=== PATIENT | female | born 1950 | race Caucasian/White ===

== ENCOUNTER 2017-02-07 17:26 | Emergency (ER) | payer SELFPAY ==
--- NOTE | 2017-02-07 17:52 | EDM.PDOC ---
ED HPI GENERAL MEDICAL PROBLEM - General Chief Complaint: ENT Problem Stated Complaint: PT HAS SINUS INFECTION Time Seen by Provider: 02/07/17 17:37 Source of Information: Reports: Patient History Limitations: Reports: No Limitations - History of Present Illness INITIAL COMMENTS - FREE TEXT/NARRATIVE: History of present illness: []Patient has long history of sinus infections that cause facial swelling and severe pain and she was in her 20s. Patient has been feeling poorly past few days and yesterday left maxillary sinus area became swollen and tender. She used Aliya pot and took Tylenol which sometimes can alleviate her symptoms however this time her symptoms progressed. She also has right ear pain. She denies any fevers, nausea, vomiting or any other complaints. Patient is a smoker. Review of systems: As per history of present illness and below otherwise all systems reviewed and negative. Past medical history: As per history of present illness and as reviewed below otherwise noncontributory. Surgical history: As per history of present illness and as reviewed below otherwise noncontributory. Social history: No reported history of drug or alcohol abuse. Family history: As per history of present illness and as reviewed below otherwise noncontributory. Physical exam: General: Well developed, well nourished in NAD HEENT: Atraumatic, left cheek with obvious swelling and no erythem, tenderness to light pressure, pupils reactive, negative for conjunctival pallor or scleral icterus, mucous membranes moist, throat clear, neck supple, nontender, trachea midline. Patient's tongue has a 3-4 mm irregular nodule midline that is not tender. Lungs: Clear to auscultation, breath sounds equal bilaterally, chest nontender. Heart: S1S2, regular, negative for clicks, rubs, or JVD. Abdomen: Soft, nondistended, nontender. Negative for masses or hepatosplenomegaly. Negative for costovertebral tenderness. Pelvis: Stable nontender. Genitourinary: Deferred. Rectal: Deferred. Extremities: Atraumatic, negative for cords or calf pain. Neurovascular unremarkable. Neuro: Awake, alert, oriented. Cranial nerves II through XII unremarkable. Cerebellum unremarkable. Motor and sensory unremarkable throughout. Exam nonfocal. Diagnostics: [] Therapeutics: []Levaquin Impression: []Acute left maxillary sinusitis, irregular tongue lesion Plan: []Follow-up ENT for further evaluation, Levaquin as directed for sinusitis symptoms worsen or change Definitive disposition and diagnosis as appropriate pending reevaluation and review of above. Left sinus area Pain Score (Numeric/FACES): 5 - Related Data Allergies Allergy/AdvReac Type Severity Reaction Status Date / Time No Known Allergies Allergy Verified 02/07/17 17:43 Home Meds: Home Meds Lisinopril/Hydrochlorothiazide [Lisinopril-Hctz 10-12.5 mg Tab] 1 tab PO DAILY 12/20/14 [History] Simvastatin [Zocor] 1 tab PO DAILY 12/20/14 [History] Citalopram [Celexa] 20 mg PO DAILY 06/05/16 [History] Levofloxacin [Levaquin] 500 mg PO Q24H #14 tablet 02/07/17 [Rx] Past Medical History HEENT History: Reports: Impaired Vision, Sinusitis, Other (See Below) Other HEENT History: Chronic sinus infections Cardiovascular History: Reports: High Cholesterol, Hypertension Respiratory History: Reports: None Gastrointestinal History: Reports: None Genitourinary History: Reports: None 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 Musculoskeletal History: Reports: None Neurological History: Reports: None Psychiatric History: Reports: Anxiety, Depression Endocrine/Metabolic History: Reports: None Hematologic History: Reports: None Immunologic History: Reports: None Oncologic (Cancer) History: Reports: None Dermatologic History: Reports: None - Infectious Disease History Infectious Disease History: Reports: None - Past Surgical History Head Surgeries/Procedures: Reports: None HEENT Surgical History: Reports: None Cardiovascular Surgical History: Reports: None Respiratory Surgical History: Reports: None GI Surgical History: Reports: None Female Surgical History: Reports: None Musculoskeletal Surgical History: Reports: Other (See Below) Other Musculoskeletal Surgeries/Procedures:: Cervical fusion Dermatological Surgical History: Reports: None Social & Family History - Family History Family Medical History: Noncontributory - Tobacco Use Smoking Status *Q: Never Smoker Years of Tobacco use: 40 Packs/Tins Daily: 1 Used Tobacco, but Quit: No Second Hand Smoke Exposure: No - Caffeine Use Caffeine Use: Reports: None - Alcohol Use Days Per Week of Alcohol Use: 0 - Recreational Drug Use Recreational Drug Use: No ED ROS ENT - Review of Systems Review Of Systems: See Below (see HPI) ED EXAM, ENT - Physical Exam Exam: See Below (See HPI) Exam Limited By: No Limitations Course - Vital Signs Last Recorded V/S: Last Vital Signs Temp 37.1 C 02/07/17 17:37 Pulse 78 02/07/17 17:37 Resp 16 02/07/17 17:37 BP 143/67 H 02/07/17 17:37 Pulse Ox 98 02/07/17 17:37 Departure - Departure Time of Disposition: 17:53 Disposition: Home, Self-Care 01 Condition: good Clinical Impression: Acute sinusitis Qualifiers: Sinusitis location: maxillary Recurrence: recurrent Qualified Code(s): J01.01 - Acute recurrent maxillary sinusitis - Discharge Information Prescriptions: Levofloxacin [Levaquin] 500 mg PO Q24H #14 tablet Referrals: PCP,None [Primary Care Provider] - Forms: ED Department Discharge Additional Instructions: The following information is given to patients seen in the emergency department who are being discharged to home. This information is to outline your options for follow-up care. We provide all patients seen in our emergency department with a follow-up referral. The need for follow-up, as well as the timing and circumstances, are variable depending upon the specifics of your emergency department visit. If you don't have a primary care physician on staff, we will provide you with a referral. We always advise you to contact your personal physician following an emergency department visit to inform them of the circumstance of the visit and for follow-up with them and/or the need for any referrals to a consulting specialist. The emergency department will also refer you to a specialist when appropriate. This referral assures that you have the opportunity for follow-up care with a specialist. All of these measure are taken in an effort to provide you with optimal care, which includes your follow-up. Under all circumstances we always encourage you to contact your private physician who remains a resource for coordinating your care. When calling for follow-up care, please make the office aware that this follow-up is from your recent emergency room visit. If for any reason you are refused follow-up, please contact the [facility] Emergency Department at and asked to speak to the emergency department charge nurse. Take Levaquin daily until gone, increase fluids Tylenol or Motrin for pain. Follow-up with ENT [facility] [address] [place] [id number]
[2017-02-07 19:03] VITALS: BP 135/65
== END 2017-02-07 18:30 | disposition home or self-care (01) ==
LOC: MW.ED 17:26
DX: J01.01 Acute recurrent maxillary sinusitis (principal); I10 Essential (primary) hypertension; E78.00 Pure hypercholesterolemia, unspecified; F41.9 Anxiety disorder, unspecified; F32.9 Major depressive disorder, single episode, unspecified; Z79.899 Other long term (current) drug therapy
CPT/HCPCS: 99282; 99283

== ENCOUNTER 2017-09-21 16:12 | Emergency (ER) | payer SELFPAY ==
--- NOTE | 2017-09-21 16:28 | EDM.PDOC ---
ED HPI GENERAL MEDICAL PROBLEM - General Chief Complaint: Genitourinary Problem Stated Complaint: BLADDER INFECTION Time Seen by Provider: 09/21/17 16:16 - History of Present Illness INITIAL COMMENTS - FREE TEXT/NARRATIVE: HISTORY AND PHYSICAL: History of present illness: Patient 67-year-old white female presents with a concern of dysuria blood in her urine. 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 She denies fever chills nausea vomiting or back pain Review of systems: As per history of present illness and below otherwise all systems reviewed and negative. Past medical history: As per history of present illness and as reviewed below otherwise noncontributory. Surgical history: As per history of present illness and as reviewed below otherwise noncontributory. Social history: No reported history of drug or alcohol abuse. Family history: As per history of present illness and as reviewed below otherwise noncontributory. Physical exam: HEENT: Atraumatic, normocephalic, pupils reactive, negative for conjunctival pallor or scleral icterus, mucous membranes moist, throat clear, neck supple, nontender, trachea midline. Lungs: Clear to auscultation, breath sounds equal bilaterally, chest nontender. Heart: S1S2, regular, negative for clicks, rubs, or JVD. Abdomen: Soft, nondistended, nontender. Negative for masses or hepatosplenomegaly. Negative for costovertebral tenderness. Pelvis: Stable nontender. Genitourinary: Deferred. Rectal: Deferred. Extremities: Atraumatic, negative for cords or calf pain. Neurovascular unremarkable. Neuro: Awake, alert, oriented. Cranial nerves II through XII unremarkable. Cerebellum unremarkable. Motor and sensory unremarkable throughout. Exam nonfocal. Diagnostics: UA urine culture and sensitivity Therapeutics: None Impression: #1 dysuria/hematuria Definitive disposition and diagnosis as appropriate pending reevaluation and review of above. - Related Data Allergies Allergy/AdvReac Type Severity Reaction Status Date / Time No Known Allergies Allergy Verified 09/21/17 16:24 Home Meds: Home Meds Lisinopril/Hydrochlorothiazide [Lisinopril-Hctz 10-12.5 mg Tab] 1 tab PO DAILY 12/20/14 [History] Simvastatin [Zocor] 1 tab PO DAILY 12/20/14 [History] Citalopram [Celexa] 20 mg PO DAILY 06/05/16 [History] Levofloxacin [Levaquin] 500 mg PO Q24H #14 tablet 02/07/17 [Rx] Past Medical History HEENT History: Reports: Impaired Vision, Sinusitis, Other (See Below) Other HEENT History: Chronic sinus infections Cardiovascular History: Reports: High Cholesterol, Hypertension Respiratory History: Reports: None Gastrointestinal History: Reports: None Genitourinary History: Reports: None 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 Musculoskeletal History: Reports: None Neurological History: Reports: None Psychiatric History: Reports: Anxiety, Depression Endocrine/Metabolic History: Reports: None Hematologic History: Reports: None Immunologic History: Reports: None Oncologic (Cancer) History: Reports: None Dermatologic History: Reports: None - Infectious Disease History Infectious Disease History: Reports: None - Past Surgical History Head Surgeries/Procedures: Reports: None HEENT Surgical History: Reports: None Cardiovascular Surgical History: Reports: None Respiratory Surgical History: Reports: None GI Surgical History: Reports: None Female Surgical History: Reports: None Musculoskeletal Surgical History: Reports: Other (See Below) Other Musculoskeletal Surgeries/Procedures:: Cervical fusion Dermatological Surgical History: Reports: None Social & Family History - Family History Family Medical History: Noncontributory - Tobacco Use Smoking Status *Q: Never Smoker Years of Tobacco use: 40 Packs/Tins Daily: 1 Used Tobacco, but Quit: No Second Hand Smoke Exposure: No - Caffeine Use Caffeine Use: Reports: None - Alcohol Use Days Per Week of Alcohol Use: 0 - Recreational Drug Use Recreational Drug Use: No ED ROS GENERAL - Review of Systems Review Of Systems: ROS reveals no pertinent complaints other than HPI. ED EXAM, GENERAL - Physical Exam Exam: See Below (See dictation) Course - Orders/Labs/Meds Orders: Active Orders 24 hr Category Date Time Status CULTURE URINE [RM] Stat Lab 09/21/17 16:15 Uncollected UA W/MICROSCOPIC [URIN] Stat Lab 09/21/17 16:15 Uncollected Departure - Departure Time of Disposition: 16:27 Disposition: Home, Self-Care 01 Condition: Good Clinical Impression: UTI, Urinary tract infectious disease - Discharge Information Additional Instructions: The following information is given to patients seen in the emergency department who are being discharged to home. This information is to outline your options for follow-up care. We provide all patients seen in our emergency department with a follow-up referral. The need for follow-up, as well as the timing and circumstances, are variable depending upon the specifics of your emergency department visit. If you don't have a primary care physician on staff, we will provide you with a referral. We always advise you to contact your personal physician following an emergency department visit to inform them of the circumstance of the visit and for follow-up with them and/or the need for any referrals to a consulting specialist. The emergency department will also refer you to a specialist when appropriate. This referral assures that you have the opportunity for followup care with a specialist. All of these measure are taken in an effort to provide you with optimal care, which includes your followup. Under all circumstances we always encourage you to contact your private physician who remains a resource for coordinating your care. When calling for followup care, please make the office aware that this follow-up is from your recent emergency room visit. If for any reason you are refused follow-up, please contact the [facility] emergency department at and asked to speak to the emergency department charge nurse. [facility] - Urology [address] [place] [id number] [facility] - Women's Health [address] [place] [id number] Follow-up primary medical doctor call to schedule appointment with women's health and urology as discussed Keflex as prescribed Pyridium as prescribed return as needed as discussed - My Orders Last 24 Hours: My Active Orders 09/21/17 16:15 CULTURE URINE [RM] Stat UA W/MICROSCOPIC [URIN] Stat - Assessment/Plan Last 24 Hours: My Active Orders 09/21/17 16:15 CULTURE URINE [RM] Stat UA W/MICROSCOPIC [URIN] Stat
[2017-09-21 17:51] VITALS: BP 142/71
== END 2017-09-21 17:24 | disposition home or self-care (01) ==
LOC: MW.ED 16:12
DX: N39.0 Urinary tract infection, site not specified (principal); R31.9 Hematuria, unspecified; I10 Essential (primary) hypertension; E78.00 Pure hypercholesterolemia, unspecified; F32.9 Major depressive disorder, single episode, unspecified; Z79.899 Other long term (current) drug therapy
CPT/HCPCS: 81001; 87086; 99283

== ENCOUNTER 2017-12-02 10:42 | Emergency (ER) | payer SELFPAY ==
[2017-12-02 10:50] VITALS: BP 132/62
--- NOTE | 2017-12-02 11:10 | EDM.PDOC ---
ED HPI GENERAL MEDICAL PROBLEM - General Chief Complaint: Lower Extremity Injury/Pain Stated Complaint: RIGHT FOOT PAIN Time Seen by Provider: 12/02/17 11:00 Source of Information: Reports: Patient History Limitations: Reports: No Limitations - History of Present Illness INITIAL COMMENTS - FREE TEXT/NARRATIVE: HISTORY AND PHYSICAL: History of present illness: [Pt comes to the emergency room complaining of right foot pain. She first noticed 2 nights ago when she walked across her apartment complex to a friend's apartment. When she got home she noticed some pain in the arch of her right foot. Since then, her foot pain has gradually gotten worse and spread to the top of her foot. She has noticed redness and swelling as well. Pain with flexing her right foot. She has not taken any medications for her symptoms. 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 She called in sick today due to the pain in her foot. She's not noticed any fever chills. No abdominal pain, nausea or vomiting. No left foot pain. Denies pain in her knee and in her calf.] Review of systems: As per history of present illness and below otherwise all systems reviewed and negative. Past medical history: As per history of present illness and as reviewed below otherwise noncontributory. Surgical history: As per history of present illness and as reviewed below otherwise noncontributory. Social history: No reported history of drug or alcohol abuse. Family history: As per history of present illness and as reviewed below otherwise noncontributory. Physical exam: General: Well developed, well nourished female in no acute distress. HEENT: Atraumatic, normocephalic., Oral mucous members are pink and moist. Lungs: Clear to auscultation, breath sounds equal bilaterally. Heart: S1S2, regular, negative for clicks, rubs, or JVD. Pelvis: Stable nontender. Genitourinary: Deferred. Rectal: Deferred. Extremities: R foot is swollen, with erythema across the dorsum of her right foot, approximately half inch wide. She is exquisitely tender over the arch of her foot as well as over the areas of erythema. No streaking up her leg or foot. Cap refill less than 2 seconds. No calf pain with palpation. Tender with weight bearing, flexing and extending her foot, but no calf pain with these motions. Neurovascular unremarkable. Neuro: Awake, alert, oriented. Motor and sensory unremarkable throughout. Exam nonfocal. Diagnostics: [Right foot and ankle x-ray, CBC, sedimentation rate, CRP, lactate, uric acid] Impression: [R foot pain] Plan: [Will treat as a cellulitis at this time with cephalexin 500mg qid x 10 days. Rx sent to [facility]. OTC analgesics prn. Is given a note to excuse from work until 12/05/17, but she must F/u w/ PCP prior to returning to work. She is in agreement with today's plan. Strict return precautions are reviewed. All questions are answered and concerns are addressed.] Definitive disposition and diagnosis as appropriate pending reevaluation and review of above. - Related Data Allergies Allergy/AdvReac Type Severity Reaction Status Date / Time No Known Allergies Allergy Verified 12/02/17 10:48 Home Meds: Home Meds Lisinopril/Hydrochlorothiazide [Lisinopril-Hctz 10-12.5 mg Tab] 1 tab PO DAILY 12/20/14 [History] Simvastatin [Zocor] 1 tab PO DAILY 12/20/14 [History] Citalopram [Celexa] 20 mg PO DAILY 06/05/16 [History] ALPRAZolam [Xanax] 0.25 mg PO DAILY 09/21/17 [History] Past Medical History HEENT History: Reports: Impaired Vision, Sinusitis, Other (See Below) Other HEENT History: Chronic sinus infections Cardiovascular History: Reports: High Cholesterol, Hypertension Respiratory History: Reports: None Gastrointestinal History: Reports: None Genitourinary History: Reports: Other (See Below) 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 Musculoskeletal History: Reports: None Neurological History: Reports: None Psychiatric History: Reports: Anxiety, Depression Endocrine/Metabolic History: Reports: None Hematologic History: Reports: None Immunologic History: Reports: None Oncologic (Cancer) History: Reports: None Dermatologic History: Reports: None - Infectious Disease History Infectious Disease History: Reports: Chicken Pox - Past Surgical History Head Surgeries/Procedures: Reports: None HEENT Surgical History: Reports: None Cardiovascular Surgical History: Reports: None Respiratory Surgical History: Reports: None GI Surgical History: Reports: None Female Surgical History: Reports: Other (See Below) Other Female Surgeries/Procedures: prolopased uterus Musculoskeletal Surgical History: Reports: Other (See Below) Other Musculoskeletal Surgeries/Procedures:: Cervical fusion Dermatological Surgical History: Reports: None Social & Family History - Family History Family Medical History: Noncontributory - Tobacco Use Smoking Status *Q: Current Every Day Smoker Years of Tobacco use: 50 Packs/Tins Daily: 1 Used Tobacco, but Quit: No Second Hand Smoke Exposure: No - Caffeine Use Caffeine Use: Reports: Soda, Tea - Alcohol Use Days Per Week of Alcohol Use: 0 - Recreational Drug Use Recreational Drug Use: No Review of Systems - Review of Systems Review Of Systems: ROS reveals no pertinent complaints other than HPI. ED EXAM, GENERAL - Physical Exam Exam: See Below Course - Vital Signs Last Recorded V/S: Last Vital Signs Temp 96.2 F 12/02/17 10:49 Pulse 91 12/02/17 10:49 Resp 16 12/02/17 10:49 BP 132/62 12/02/17 10:49 Pulse Ox 97 12/02/17 10:49 - Orders/Labs/Meds Orders: Active Orders 24 hr Category Date Time Status Foot 2V Rt [CR] Stat Exams 12/02/17 11:07 Taken Labs: Laboratory Tests 12/02/17 12/02/17 12/02/17 Range/Units 11:20 11:20 11:20 WBC 9.43 (4.0-11.0) K/uL RBC 4.87 (4.30-5.90) M/uL Hgb 16.3 H (12.0-16.0) g/dL Hct 46.7 H (36.0-46.0) % MCV 95.9 (80.0-98.0) fL MCH 33.5 H (27.0-32.0) pg MCHC 34.9 (31.0-37.0) g/dL RDW Std Deviation 47.0 (28.0-62.0) fl RDW Coeff of Aide 13 (11.0-15.0) % Plt Count 253 (150-400) K/uL MPV 10.60 (7.40-12.00) fL Neut % (Auto) 64.8 (48.0-80.0) % Lymph % (Auto) 24.4 (16.0-40.0) % Ocean % (Auto) 10.3 (0.0-15.0) % Eos % (Auto) 0.4 (0.0-7.0) % Baso % (Auto) 0.1 (0.0-1.5) % Neut # (Auto) 6.1 H (1.4-5.7) K/uL Lymph # (Auto) 2.3 (0.6-2.4) K/uL Ocean # (Auto) 1.0 H (0.0-0.8) K/uL Eos # (Auto) 0.0 (0.0-0.7) K/uL Baso # (Auto) 0.0 (0.0-0.1) K/uL Nucleated RBC % 0.0 /100WBC Nucleated RBCs # 0 K/uL ESR 32 H (0-29) mm/hr Lactate 3.0 H (0.20-2.00) mmol/L Uric Acid (2.6-7.2) mg/dL C-Reactive Protein (0.00-0.90) mg/dL 12/02/17 12/02/17 Range/Units 11:20 11:20 WBC (4.0-11.0) K/uL RBC (4.30-5.90) M/uL Hgb (12.0-16.0) g/dL Hct (36.0-46.0) % MCV (80.0-98.0) fL MCH (27.0-32.0) pg MCHC (31.0-37.0) g/dL RDW Std Deviation (28.0-62.0) fl RDW Coeff of Aide (11.0-15.0) % Plt Count (150-400) K/uL MPV (7.40-12.00) fL Neut % (Auto) (48.0-80.0) % Lymph % (Auto) (16.0-40.0) % Ocean % (Auto) (0.0-15.0) % Eos % (Auto) (0.0-7.0) % Baso % (Auto) (0.0-1.5) % Neut # (Auto) (1.4-5.7) K/uL Lymph # (Auto) (0.6-2.4) K/uL Ocean # (Auto) (0.0-0.8) K/uL Eos # (Auto) (0.0-0.7) K/uL Baso # (Auto) (0.0-0.1) K/uL Nucleated RBC % /100WBC Nucleated RBCs # K/uL ESR (0-29) mm/hr Lactate (0.20-2.00) mmol/L Uric Acid 3.4 (2.6-7.2) mg/dL C-Reactive Protein 3.30 H (0.00-0.90) mg/dL Departure - Departure Time of Disposition: 12:35 Disposition: Home, Self-Care 01 Condition: Good Clinical Impression: Right foot pain - Discharge Information Instructions: Foot Pain Referrals: Nathaniel Gleason MD [Primary Care Provider] - Forms: ED Department Discharge Additional Instructions: The following information is given to patients seen in the emergency department who are being discharged to home. This information is to outline your options for follow-up care. We provide all patients seen in our emergency department with a follow-up referral. The need for follow-up, as well as the timing and circumstances, are variable depending upon the specifics of your emergency department visit. If you don't have a primary care physician on staff, we will provide you with a referral. We always advise you to contact your personal physician following an emergency department visit to inform them of the circumstance of the visit and for follow-up with them and/or the need for any referrals to a consulting specialist. The emergency department will also refer you to a specialist when appropriate. This referral assures that you have the opportunity for follow-up care with a specialist. All of these measure are taken in an effort to provide you with optimal care, which includes your follow-up. Under all circumstances we always encourage you to contact your private physician who remains a resource for coordinating your care. When calling for follow-up care, please make the office aware that this follow-up is from your recent emergency room visit. If for any reason you are refused follow-up, please contact the [facility] emergency department at and asked to speak to the emergency department charge nurse. [address] [address] Follow-up with your local primary care provider at the clinic listed above in the next 48-72 hours. Take antibiotics as prescribed. Push fluids, take Tylenol or ibuprofen as needed for discomfort. Keep foot elevated. Return to ER as needed as discussed. - My Orders Last 24 Hours: My Active Orders 12/02/17 11:07 Foot 2V Rt [CR] Stat - Assessment/Plan Last 24 Hours: My Active Orders 12/02/17 11:07 Foot 2V Rt [CR] Stat
--- NOTE | 2017-12-03 13:25 | CR ---
EXAM DATE: 12/02/17 PATIENT'S AGE: 67 Patient: WILLIAM TAYLOR Facility: [place], [place] Site . Site : 1950 Study: XRay Extremity Right foot [id number]/1/2018 11:47:25 AM Ordering Physician: Doctor Cabrera Final Report: INDICATION: Pain, redness and swelling right foot. COMPARISON: None. TECHNIQUE: Two-view study right foot. FINDINGS: Soft tissue swelling overlying the dorsum of the right foot. No evidence of fracture or dislocation. No other bony or soft tissue abnormalities. IMPRESSION: 1. Soft tissue swelling overlying the dorsum of the right foot. 2. No fracture or dislocation. Dictated by Elie Schneider MD @ Dec 02 2017 11:48AM (Electronic Signature) Report Signed by Proxy. LAYO
== END 2017-12-02 12:46 | disposition home or self-care (01) ==
LOC: MW.ED 10:42
DX: M79.671 Pain in right foot (principal); I10 Essential (primary) hypertension; F41.9 Anxiety disorder, unspecified; F32.9 Major depressive disorder, single episode, unspecified; Z79.899 Other long term (current) drug therapy; E78.00 Pure hypercholesterolemia, unspecified; F17.210 Nicotine dependence, cigarettes, uncomplicated
CPT/HCPCS: 36415; 73620-26-RT; 73620-RT; 83605; 84550; 85025; 85652; 86140; 99283

== ENCOUNTER 2018-01-02 18:18 | Emergency (ER) | payer SELFPAY ==
[2018-01-02] MEDS ORDERED: Acetaminophen/Codeine 300-30 MG Tab PO ONE (18:33)
--- NOTE | 2018-01-02 18:36 | EDM.PDOC ---
ED HPI GENERAL MEDICAL PROBLEM - General Chief Complaint: Neck Problem Stated Complaint: PT HAS BODY PAIN Time Seen by Provider: 01/02/18 18:25 - History of Present Illness INITIAL COMMENTS - FREE TEXT/NARRATIVE: HISTORY AND PHYSICAL: History of present illness: Patient's a 67-year-old female with history chronic intermittent neck pain she did have cervical spine fusion for multiple disc disease and is on Flexeril which she takes when necessary she's had no trauma she states the weather sometimes exacerbates pain in the neck and she comes in with neck pain is been no numbness or weakness she has been using Motrin also and is in no significant improvement Review of systems: As per history of present illness and below otherwise all systems reviewed and negative. Past medical history: As per history of present illness and as reviewed below otherwise noncontributory. Surgical history: As per history of present illness and as reviewed below otherwise noncontributory. Social history: No reported history of drug or alcohol abuse. Family history: As per history of present illness and as reviewed below otherwise noncontributory. Physical exam: HEENT: Atraumatic, normocephalic, pupils reactive, negative for conjunctival pallor or scleral icterus, mucous membranes moist, throat clear, neck supple, nontender, trachea midline. Lungs: Clear to auscultation, breath sounds equal bilaterally, chest nontender. Heart: S1S2, regular, negative for clicks, rubs, or JVD. Abdomen: Soft, nondistended, nontender. Negative for masses or hepatosplenomegaly. Negative for costovertebral tenderness. Pelvis: Stable nontender. Genitourinary: Deferred. Rectal: Deferred. Extremities: Atraumatic, negative for cords or calf pain. Neurovascular unremarkable. Neuro: Awake, alert, oriented. Cranial nerves II through XII unremarkable. Cerebellum unremarkable. Motor and sensory unremarkable throughout. Exam nonfocal. Diagnostics: X-ray cervical spine Therapeutics: Tylenol 3 one by mouth Impression: #1 chronic intermittent neck pain #2 history of cervical disc disease with spinal fusion Definitive disposition and diagnosis as appropriate pending reevaluation and review of above. Neck Pain Score (Numeric/FACES): 7 - Related Data Allergies Allergy/AdvReac Type Severity Reaction Status Date / Time No Known Allergies Allergy Verified 01/02/18 18:32 Home Meds: Home Meds Lisinopril/Hydrochlorothiazide [Lisinopril-Hctz 10-12.5 mg Tab] 1 tab PO DAILY 12/20/14 [History] Simvastatin [Zocor] 1 tab PO DAILY 12/20/14 [History] Citalopram [Celexa] 20 mg PO DAILY 06/05/16 [History] ALPRAZolam [Xanax] 0.25 mg PO DAILY 09/21/17 [History] Past Medical History HEENT History: Reports: Impaired Vision, Sinusitis, Other (See Below) Other HEENT History: Chronic sinus infections Cardiovascular History: Reports: High Cholesterol, Hypertension Respiratory History: Reports: None Gastrointestinal History: Reports: None Genitourinary History: Reports: Other (See Below) 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 Musculoskeletal History: Reports: None Neurological History: Reports: None Psychiatric History: Reports: Anxiety, Depression Endocrine/Metabolic History: Reports: None Hematologic History: Reports: None Immunologic History: Reports: None Oncologic (Cancer) History: Reports: None Dermatologic History: Reports: None - Infectious Disease History Infectious Disease History: Reports: Chicken Pox - Past Surgical History Head Surgeries/Procedures: Reports: None HEENT Surgical History: Reports: None Cardiovascular Surgical History: Reports: None Respiratory Surgical History: Reports: None GI Surgical History: Reports: None Female Surgical History: Reports: Other (See Below) Other Female Surgeries/Procedures: prolopased uterus Musculoskeletal Surgical History: Reports: Other (See Below) Other Musculoskeletal Surgeries/Procedures:: Cervical fusion Dermatological Surgical History: Reports: None Social & Family History - Family History Family Medical History: Noncontributory - Tobacco Use Smoking Status *Q: Current Every Day Smoker Years of Tobacco use: 50 Packs/Tins Daily: 1 Used Tobacco, but Quit: No Second Hand Smoke Exposure: No - Caffeine Use Caffeine Use: Reports: Soda, Tea - Alcohol Use Days Per Week of Alcohol Use: 0 - Recreational Drug Use Recreational Drug Use: No ED ROS GENERAL - Review of Systems Review Of Systems: ROS reveals no pertinent complaints other than HPI. ED EXAM, GENERAL - Physical Exam Exam: See Below (See dictation) Course - Vital Signs Last Recorded V/S: Last Vital Signs Temp 37.1 C 01/02/18 18:28 Pulse 91 01/02/18 18:28 Resp 18 01/02/18 18:28 BP 130/72 01/02/18 18:28 Pulse Ox 93 L 01/02/18 18:28 - Orders/Labs/Meds Orders: Active Orders 24 hr Category Date Time Status Cervical Spine 2V or 3V [CR] Stat Exams 01/02/18 18:32 Taken Meds: Medications Discontinued Medications Generic Name Dose Route Start Last Admin Trade Name Aleena PRN Reason Stop Dose Admin Acetaminophen/Codeine Phosphate 1 tab 01/02/18 18:33 01/02/18 19:15 Tylenol With Codeine No.3 300mg/30mg PO 01/02/18 18:34 1 tab ONETIME ONE Administration Departure - Departure Time of Disposition: 20:11 Disposition: Home, Self-Care 01 Condition: Good Clinical Impression: Neck pain, Degenerative disc disease - Discharge Information Referrals: PCP,None [Primary Care Provider] - Forms: ED Department Discharge Additional Instructions: The following information is given to patients seen in the emergency department who are being discharged to home. This information is to outline your options for follow-up care. We provide all patients seen in our emergency department with a follow-up referral. The need for follow-up, as well as the timing and circumstances, are variable depending upon the specifics of your emergency department visit. If you don't have a primary care physician on staff, we will provide you with a referral. We always advise you to contact your personal physician following an emergency department visit to inform them of the circumstance of the visit and for follow-up with them and/or the need for any referrals to a consulting specialist. The emergency department will also refer you to a specialist when appropriate. This referral assures that you have the opportunity for followup care with a specialist. All of these measure are taken in an effort to provide you with optimal care, which includes your followup. Under all circumstances we always encourage you to contact your private physician who remains a resource for coordinating your care. When calling for followup care, please make the office aware that this follow-up is from your recent emergency room visit. If for any reason you are refused follow-up, please contact the [facility] emergency department at and asked to speak to the emergency department charge nurse. Ultram as prescribed follow-up private medical doctor return as needed as discussed[] - My Orders Last 24 Hours: My Active Orders 01/02/18 18:32 Cervical Spine 2V or 3V [CR] Stat - Assessment/Plan Last 24 Hours: My Active Orders 01/02/18 18:32 Cervical Spine 2V or 3V [CR] Stat
[2018-01-02 20:31] VITALS: BP 110/70
--- NOTE | 2018-01-03 09:54 | CR ---
EXAM DATE: 01/02/18 PATIENT'S AGE: 67 Patient: WILLIAM TAYLOR Facility: [place], [place] Site . Site : 1950 Study: XRay Spine Cervical [id number]/2/2018 7:05:21 PM Ordering Physician: Ricky Holden Final Report: HISTORY: Neck pain. COMPARISON: None. FINDINGS: Straightening of the normal lordotic curvature of the cervical spine. C4 through C7 anterior fusion with interbody disc spacers. Hardware appears intact. No evidence for acute fracture. Prevertebral soft tissues are within normal. C1 well aligned on C2. Dictated by Kennedi Rivers MD @ Jan 02 2018 7:06PM (Electronic Signature) Report Signed by Proxy. LAYO
== END 2018-01-02 20:15 | disposition home or self-care (01) ==
LOC: MW.ED 18:18
DX: M50.30 Other cervical disc degeneration, unspecified cervical region (principal); E78.00 Pure hypercholesterolemia, unspecified; I10 Essential (primary) hypertension; F41.9 Anxiety disorder, unspecified; F32.9 Major depressive disorder, single episode, unspecified; F17.210 Nicotine dependence, cigarettes, uncomplicated; M19.91 Primary osteoarthritis, unspecified site; Z79.899 Other long term (current) drug therapy
CPT/HCPCS: 72040; 99283; A9270

== ENCOUNTER 2018-09-30 14:44 | Emergency (ER) | payer MEDICARE ==
[2018-09-30 15:20] VITALS: BP 108/63
--- NOTE | 2018-09-30 15:39 | EDM.PDOC ---
ED HPI GENERAL MEDICAL PROBLEM - General Chief Complaint: Lower Extremity Injury/Pain Stated Complaint: LEFT FOOT SWOLLEN Time Seen by Provider: 09/30/18 15:34 Source of Information: Reports: Patient History Limitations: Reports: No Limitations - History of Present Illness INITIAL COMMENTS - FREE TEXT/NARRATIVE: HISTORY AND PHYSICAL: History of present illness: Patient is a 68 year old female here with complaint of left foot pain and swelling. She states she had something similar in her right ankle last year and was diagnosed with gout by her primary care provider believes that this is what she has in her left ankle. She states not as bad this time and rates as a /10. She reports that she's been on her feet at work working 10 days in a row started bothering her after this become swollen and painful. She denies any fevers or chills and no injury or trauma to the ankle. She is otherwise healthy and has no other complaints at this time Review of systems: As per history of present illness and below otherwise all systems reviewed and negative. Past medical history: As per history of present illness and as reviewed below otherwise noncontributory. Surgical history: As per history of present illness and as reviewed below otherwise noncontributory. Social history: No reported history of drug or alcohol abuse. Family history: As per history of present illness and as reviewed below otherwise noncontributory. Physical exam: General: Patient sitting comfortably in no acute distress and nontoxic appearing HEENT: Atraumatic, normocephalic, pupils reactive, negative for conjunctival pallor or scleral icterus, mucous membranes moist, throat clear, neck supple, nontender, trachea midline. No meningeal signs. Lungs: Clear to auscultation, breath sounds equal bilaterally, chest nontender. Heart: S1S2, regular, negative for clicks, rubs, or overt murmur. Abdomen: Soft, nondistended, nontender. Negative for masses or hepatosplenomegaly. Negative for costovertebral tenderness. Pelvis: Stable nontender. Genitourinary: Deferred. Rectal: Deferred. Extremities: Left medial ankle is swollen with minimal tenderness to palpation on exam. No erythema and mild warmth noted. Atraumatic, negative for cords or calf pain. Neurovascular unremarkable. Neuro: Awake, alert, oriented. Cranial nerves II through XII unremarkable. Cerebellum unremarkable. Motor and sensory unremarkable throughout. Exam nonfocal. Notes: Diagnostics: Declined x-ray Therapeutics: None Prescriptions: Indomethacin Impression: Ankle pain, acute gout Plan: 1. Take antibiotic as instructed 2. Follow-up with primary care provider 3. Return to ED as needed as discussed Definitive disposition and diagnosis as appropriate pending reevaluation and review of above. left foot Pain Score (Numeric/FACES): 1 - Related Data Allergies Allergy/AdvReac Type Severity Reaction Status Date / Time No Known Allergies Allergy Verified 01/02/18 18:32 Home Meds: Home Meds Lisinopril/Hydrochlorothiazide [Lisinopril-Hctz 10-12.5 mg Tab] 1 tab PO DAILY 12/20/14 [History] Simvastatin [Zocor] 1 tab PO DAILY 12/20/14 [History] Citalopram [Celexa] 20 mg PO DAILY 06/05/16 [History] ALPRAZolam [Xanax] 0.25 mg PO DAILY 09/21/17 [History] Indomethacin 50 mg PO TID 5 Days #15 capsule 09/30/18 [Rx] Past Medical History HEENT History: Reports: Impaired Vision, Sinusitis, Other (See Below) Other HEENT History: Chronic sinus infections Cardiovascular History: Reports: High Cholesterol, Hypertension Respiratory History: Reports: None Gastrointestinal History: Reports: None Genitourinary History: Reports: Other (See Below) 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, Musculoskeletal History: Reports: None Neurological History: Reports: None Psychiatric History: Reports: Anxiety, Depression Endocrine/Metabolic History: Reports: None Hematologic History: Reports: None Immunologic History: Reports: None Oncologic (Cancer) History: Reports: None Dermatologic History: Reports: None - Infectious Disease History Infectious Disease History: Reports: Chicken Pox - Past Surgical History Head Surgeries/Procedures: Reports: None HEENT Surgical History: Reports: None Cardiovascular Surgical History: Reports: None Respiratory Surgical History: Reports: None GI Surgical History: Reports: Appendectomy Female Surgical History: Reports: Other (See Below) Other Female Surgeries/Procedures: prolopased uterus Musculoskeletal Surgical History: Reports: Other (See Below) Other Musculoskeletal Surgeries/Procedures:: Cervical fusion Dermatological Surgical History: Reports: None Social & Family History - Family History Family Medical History: Noncontributory - Tobacco Use Smoking Status *Q: Current Every Day Smoker Years of Tobacco use: 20 Packs/Tins Daily: 1 - Caffeine Use Caffeine Use: Reports: Soda, Tea - Recreational Drug Use Recreational Drug Use: No Review of Systems - Review of Systems Review Of Systems: ROS reveals no pertinent complaints other than HPI. ED EXAM, GENERAL - Physical Exam Exam: See Below (see dictation) Course - Vital Signs Last Recorded V/S: Last Vital Signs Temp 97.8 F 09/30/18 15:18 Pulse 72 09/30/18 15:18 Resp 16 09/30/18 15:18 BP 108/63 09/30/18 15:18 Pulse Ox 94 L 09/30/18 15:18 Departure - Departure Time of Disposition: 15:37 Disposition: Home, Self-Care 01 Condition: Good Clinical Impression: Ankle pain, Acute gout - Discharge Information Referrals: Nathaniel Gleason MD [Primary Care Provider] - Additional Instructions: The following information is given to patients seen in the emergency department who are being discharged to home. This information is to outline your options for follow-up care. We provide all patients seen in our emergency department with a follow-up referral. The need for follow-up, as well as the timing and circumstances, are variable depending upon the specifics of your emergency department visit. If you don't have a primary care physician on staff, we will provide you with a referral. We always advise you to contact your personal physician following an emergency department visit to inform them of the circumstance of the visit and for follow-up with them and/or the need for any referrals to a consulting specialist. The emergency department will also refer you to a specialist when appropriate. This referral assures that you have the opportunity for follow-up care with a specialist. All of these measure are taken in an effort to provide you with optimal care, which includes your follow-up. Under all circumstances we always encourage you to contact your private physician who remains a resource for coordinating your care. When calling for follow-up care, please make the office aware that this follow-up is from your recent emergency room visit. If for any reason you are refused follow-up, please contact the [facility] Emergency Department at and asked to speak to the emergency department charge nurse. [address] [address] 1. Take antibiotic as instructed 2. Follow-up with primary care provider 3. Return to ED as needed as discussed
== END 2018-09-30 15:52 | disposition home or self-care (01) ==
LOC: MW.ED 14:44
DX: M10.9 Gout, unspecified (principal); M25.572 Pain in left ankle and joints of left foot; I10 Essential (primary) hypertension; F41.9 Anxiety disorder, unspecified; F32.9 Major depressive disorder, single episode, unspecified; Z79.899 Other long term (current) drug therapy
CPT/HCPCS: 99282; 99283

== ENCOUNTER 2020-02-28 16:52 | Emergency (ER) | payer MEDICARE, BC ==
[2020-02-28] MEDS ORDERED: Dexamethasone 4 MG Tab PO ONE (17:17)
--- NOTE | 2020-02-28 17:23 | EDM.PDOC ---
ED HPI GENERAL MEDICAL PROBLEM - General Chief Complaint: Neck Problem Stated Complaint: Neck pain Time Seen by Provider: 02/28/20 17:09 - History of Present Illness INITIAL COMMENTS - FREE TEXT/NARRATIVE: History of present illness: Patient presents with pain and spasm in her neck that radiates down into the right upper back between her shoulder blades she denies any trauma there is been no fever movement seems to make it worse sometimes it gets better by itself she is using some salonpas patches and these are helping. Is a prior history of degenerative joint disease with a fusion in the past and discectomies. She has some tingling occasionally in her upper arms but she denies any candelario pain going down her arms at this time she has tried no other medications for the pain no shortness of breath no weakness no difficulty urinating Review of systems: As per history of present illness and below otherwise all systems reviewed and negative. Past medical history: As per history of present illness and as reviewed below otherwise noncontributory. Surgical history: As per history of present illness and as reviewed below otherwise noncontributory. Social history: No reported history of drug or alcohol abuse. Family history: As per history of present illness and as reviewed below otherwise noncontributory. Physical exam: HEENT: Atraumatic, normocephalic, pupils reactive, negative for conjunctival pallor or scleral icterus, mucous membranes moist, throat clear, neck supple, nontender, trachea midline. Lungs: Clear to auscultation, breath sounds equal bilaterally, chest nontender. Heart: S1S2, regular, negative for clicks, rubs, or JVD. Abdomen: Soft, nondistended, nontender. Negative for masses or hepatosplenomegaly. Negative for costovertebral tenderness. Pelvis: Stable nontender. Genitourinary: Deferred. Rectal: Deferred. Extremities: Atraumatic, negative for cords or calf pain. Neurovascular unremarkable. Neuro: Awake, alert, oriented. Cranial nerves II through XII unremarkable. Cerebellum unremarkable. Motor and sensory unremarkable throughout. Exam nonfocal. Upper extremity hands are full strength and sensation. Neck: There is spasm and tenderness in the paraspinal musculature at the base of the cervical spine extending down into the upper thoracic spine worse on the right there is no midline tenderness no tenderness to percussion no increased symptoms with axial load Diagnostics: [] Therapeutics: [] Impression: Neck pain [] Plan: We will start the patient on steroids and Flexeril have her follow-up with primary care Tylenol for pain [] Definitive disposition and diagnosis as appropriate pending reevaluation and review of above. Bilateral upper back Pain Score (Numeric/FACES): 6 - Related Data Allergies Allergy/AdvReac Type Severity Reaction Status Date / Time No Known Allergies Allergy Verified 02/28/20 17:08 Home Meds: Home Meds Simvastatin [Zocor] 1 tab PO DAILY 12/20/14 [History] Citalopram [Celexa] 20 mg PO DAILY 06/05/16 [History] ALPRAZolam [Xanax] 0.25 mg PO DAILY 09/21/17 [History] Cyclobenzaprine [Flexeril] 10 mg PO TID #30 tab 02/28/20 [Rx] Pseudoephedrine HCl [Sudafed] 1 tab PO ASDIRECTED 02/28/20 [History] predniSONE 60 mg PO WITHBREAKFAST 5 Days #15 tab 02/28/20 [Rx] Past Medical History HEENT History: Reports: Impaired Vision, Sinusitis, Other (See Below) Other HEENT History: Chronic sinus infections Cardiovascular History: Reports: High Cholesterol, Hypertension Respiratory History: Reports: None Gastrointestinal History: Reports: None Genitourinary History: Reports: Other (See Below) MAORI LIAISON ADVISER History: Reports: None, Musculoskeletal History: Reports: None Neurological History: Reports: None Psychiatric History: Reports: Anxiety, Depression Endocrine/Metabolic History: Reports: None Hematologic History: Reports: None Immunologic History: Reports: None Oncologic (Cancer) History: Reports: None Dermatologic History: Reports: None - Infectious Disease History Infectious Disease History: Reports: None - Past Surgical History Head Surgeries/Procedures: Reports: None HEENT Surgical History: Reports: None Cardiovascular Surgical History: Reports: None Respiratory Surgical History: Reports: None GI Surgical History: Reports: Appendectomy Female Surgical History: Reports: Other (See Below) Other Female Surgeries/Procedures: prolopased uterus Musculoskeletal Surgical History: Reports: Other (See Below) Other Musculoskeletal Surgeries/Procedures:: Cervical fusion Dermatological Surgical History: Reports: None Social & Family History - Family History Family Medical History: Noncontributory - Tobacco Use Smoking Status *Q: Current Every Day Smoker Years of Tobacco use: 50 Packs/Tins Daily: 1 - Caffeine Use Caffeine Use: Reports: Soda - Recreational Drug Use Recreational Drug Use: No ED ROS GENERAL - Review of Systems Review Of Systems: See Below ED EXAM, GENERAL - Physical Exam Exam: See Below Course - Vital Signs Text/Narrative:: Patient's pain is clearly musculoskeletal she will be started on some steroid and Flexeril for her spasm and inflammation follow-up with primary care. Last Recorded V/S: Last Vital Signs Temp 36.0 C L 02/28/20 17:09 Pulse 86 02/28/20 17:09 Resp 16 02/28/20 17:09 BP 171/86 H 02/28/20 17:09 Pulse Ox 93 L 02/28/20 17:09 - Orders/Labs/Meds Orders: Active Orders 24 hr Category Date Time Status dexAMETHasone Med 02/28/20 17:17 Once 8 mg PO ONETIME ONE Medication Orders Dexamethasone (Dexamethasone) 8 mg PO ONETIME ONE Stop: 02/28/20 17:18 Meds: Medications Generic Name Dose Route Start Last Admin Trade Name Aleena PRN Reason Stop Dose Admin Dexamethasone 8 mg 02/28/20 17:17 Dexamethasone PO 02/28/20 17:18 ONETIME ONE Departure - Departure Time of Disposition: 17:22 Disposition: 20 Condition: Good Clinical Impression: Neck pain - Discharge Information *PRESCRIPTION DRUG MONITORING PROGRAM REVIEWED*: Not Applicable *COPY OF PRESCRIPTION DRUG MONITORING REPORT IN PATIENT JAGJIT: Not Applicable Instructions: Cervical Sprain, [id number] Referrals: Nathaniel Gleason MD [Primary Care Provider] - Additional Instructions: The following information is given to patients seen in the emergency department who are being discharged to home. This information is to outline your options for follow-up care. We provide all patients seen in our emergency department with a follow-up referral. The need for follow-up, as well as the timing and circumstances, are variable depending upon the specifics of your emergency department visit. If you don't have a primary care physician on staff, we will provide you with a referral. We always advise you to contact your personal physician following an emergency department visit to inform them of the circumstance of the visit and for follow-up with them and/or the need for any referrals to a consulting specialist. The emergency department will also refer you to a specialist when appropriate. This referral assures that you have the opportunity for follow-up care with a specialist. All of these measure are taken in an effort to provide you with optimal care, which includes your follow-up. Under all circumstances we always encourage you to contact your private physician who remains a resource for coordinating your care. When calling for follow-up care, please make the office aware that this follow-up is from your recent emergency room visit. If for any reason you are refused follow-up, please contact the [facility] Emergency Department at and asked to speak to the emergency department charge nurse. Sepsis Event Note (ED) - Evaluation Sepsis Screening Result: No Definite Risk - Focused Exam Vital Signs: Vital Signs Temp Pulse Resp BP Pulse Ox 02/28/20 17:09 36.0 C L 86 16 171/86 H 93 L - My Orders Last 24 Hours: My Active Orders 02/28/20 17:17 dexAMETHasone 8 mg PO ONETIME ONE - Assessment/Plan Last 24 Hours: My Active Orders 02/28/20 17:17 dexAMETHasone 8 mg PO ONETIME ONE
[2020-02-28 17:34] VITALS: BP 156/84; PULSE 85
== END 2020-02-28 17:38 | disposition home or self-care (01) ==
LOC: MW.ED 16:52
DX: M54.2 Cervicalgia (principal); I10 Essential (primary) hypertension; E78.00 Pure hypercholesterolemia, unspecified; F41.9 Anxiety disorder, unspecified; F32.9 Major depressive disorder, single episode, unspecified; F17.210 Nicotine dependence, cigarettes, uncomplicated; Z79.899 Other long term (current) drug therapy
CPT/HCPCS: 99283; J8540

== ENCOUNTER 2020-04-24 15:31 | Emergency (ER) | payer BC, MEDICARE ==
[2020-04-24 15:47] VITALS: PULSE 85
--- NOTE | 2020-04-24 16:13 | EDM.PDOC ---
ED HPI GENERAL MEDICAL PROBLEM - General Chief Complaint: Skin Complaint Stated Complaint: PINKY FINGER IS SWOLLEN Time Seen by Provider: 04/24/20 15:39 - History of Present Illness INITIAL COMMENTS - FREE TEXT/NARRATIVE: History of present illness: Patient presents with swelling and redness to her left nondominant fifth finger. She says she woke up with the pain in the hand she denies any trauma or any insect bites but there is a small abrasion to the dorsal aspect of the proximal interphalangeal joint with surrounding erythema and calor. She is concerned it might be gout she states she is had gout in her toes before but this is an unusual presentation in the fifth digit she denies any other injuries no other complaints she denies any fever chills it is progressively gotten worse throughout the day. Review of systems: As per history of present illness and below otherwise all systems reviewed and negative. Past medical history: As per history of present illness and as reviewed below otherwise noncontributory. Surgical history: As per history of present illness and as reviewed below otherwise noncontributory. Social history: No reported history of drug or alcohol abuse. Family history: As per history of present illness and as reviewed below otherwise noncontributory. Physical exam: HEENT: Atraumatic, normocephalic, pupils reactive, negative for conjunctival pallor or scleral icterus, mucous membranes moist, throat clear, neck supple, nontender, trachea midline. Lungs: Clear to auscultation, breath sounds equal bilaterally, chest nontender. Heart: S1S2, regular, negative for clicks, rubs, or JVD. Abdomen: Soft, nondistended, nontender. Negative for masses or hepatosplenomegaly. Negative for costovertebral tenderness. Pelvis: Stable nontender. Genitourinary: Deferred. Rectal: Deferred. Extremities: Atraumatic, negative for cords or calf pain. Neurovascular unremarkable. There is redness and erythema in the skin at the proximal interphalangeal joint with tenderness. Good distal cap refill and sensation are present. This is consistent with a cellulitis is a small abrasion to the dorsal aspect just above the knuckle there. Neuro: Awake, alert, oriented. Cranial nerves II through XII unremarkable. Cerebellum unremarkable. Motor and sensory unremarkable throughout. Exam nonfocal. Diagnostics: [] Therapeutics: [] Impression: [] Plan: Cycling meloxicam. Follow-up with primary care return to the ED over the weekend if worsening [] Definitive disposition and diagnosis as appropriate pending reevaluation and review of above. L pinky finger Pain Score (Numeric/FACES): 5 - Related Data Allergies Allergy/AdvReac Type Severity Reaction Status Date / Time No Known Allergies Allergy Verified 04/24/20 15:40 Home Meds: Home Meds Simvastatin [Zocor] 1 tab PO DAILY 12/20/14 [History] Citalopram [Celexa] 20 mg PO DAILY 06/05/16 [History] ALPRAZolam [Xanax] 0.25 mg PO DAILY 09/21/17 [History] Pseudoephedrine HCl [Sudafed] 1 tab PO ASDIRECTED 02/28/20 [History] Doxycycline [Vibra-Tabs] 100 mg PO BID #20 tablet 04/24/20 [Rx] Meloxicam [Mobic] 15 mg PO DAILY 7 Days #7 tablet 04/24/20 [Rx] Past Medical History HEENT History: Reports: Impaired Vision, Sinusitis, Other (See Below) Other HEENT History: Chronic sinus infections Cardiovascular History: Reports: High Cholesterol, Hypertension Respiratory History: Reports: None Gastrointestinal History: Reports: None Genitourinary History: Reports: Other (See Below) 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, Musculoskeletal History: Reports: None Neurological History: Reports: None Psychiatric History: Reports: Anxiety, Depression Endocrine/Metabolic History: Reports: None Hematologic History: Reports: None Immunologic History: Reports: None Oncologic (Cancer) History: Reports: None Dermatologic History: Reports: None - Infectious Disease History Infectious Disease History: Reports: Measles, Mumps - Past Surgical History Head Surgeries/Procedures: Reports: None HEENT Surgical History: Reports: None Cardiovascular Surgical History: Reports: None Respiratory Surgical History: Reports: None GI Surgical History: Reports: Appendectomy Female Surgical History: Reports: Other (See Below) Other Female Surgeries/Procedures: prolopased uterus Musculoskeletal Surgical History: Reports: Other (See Below) Other Musculoskeletal Surgeries/Procedures:: Cervical fusion Dermatological Surgical History: Reports: None Social & Family History - Family History Family Medical History: Noncontributory - Caffeine Use Caffeine Use: Reports: Coffee - Recreational Drug Use Recreational Drug Use: No ED ROS GENERAL - Review of Systems Review Of Systems: See Below ED EXAM, SKIN/RASH Exam: See Below Course - Vital Signs Last Recorded V/S: Last Vital Signs Temp 36.7 C 04/24/20 15:42 Pulse 85 04/24/20 15:42 Resp 20 04/24/20 15:42 BP 151/70 H 04/24/20 15:42 Pulse Ox 92 L 04/24/20 15:42 Departure - Departure Time of Disposition: 16:12 Disposition: Home, Self-Care 01 Condition: Good Clinical Impression: Cellulitis - Discharge Information *PRESCRIPTION DRUG MONITORING PROGRAM REVIEWED*: Not Applicable *COPY OF PRESCRIPTION DRUG MONITORING REPORT IN PATIENT JAGJIT: Not Applicable Prescriptions: Meloxicam [Mobic] 15 mg PO DAILY 7 Days #7 tablet Doxycycline [Vibra-Tabs] 100 mg PO BID #20 tablet Instructions: Cellulitis, Adult Referrals: Nathaniel Gleason MD [Primary Care Provider] - Additional Instructions: The following information is given to patients seen in the emergency department who are being discharged to home. This information is to outline your options for follow-up care. We provide all patients seen in our emergency department with a follow-up referral. The need for follow-up, as well as the timing and circumstances, are variable depending upon the specifics of your emergency department visit. If you don't have a primary care physician on staff, we will provide you with a referral. We always advise you to contact your personal physician following an emergency department visit to inform them of the circumstance of the visit and for follow-up with them and/or the need for any referrals to a consulting specialist. The emergency department will also refer you to a specialist when appropriate. This referral assures that you have the opportunity for follow-up care with a specialist. All of these measure are taken in an effort to provide you with optimal care, which includes your follow-up. Under all circumstances we always encourage you to contact your private physician who remains a resource for coordinating your care. When calling for follow-up care, please make the office aware that this follow-up is from your recent emergency room visit. If for any reason you are refused follow-up, please contact the [facility] Emergency Department at and asked to speak to the emergency department charge nurse. Sepsis Event Note (ED) - Evaluation Sepsis Screening Result: No Definite Risk - Focused Exam Vital Signs: Vital Signs Temp Pulse Resp BP Pulse Ox 04/24/20 15:42 36.7 C 85 20 151/70 H 92 L
[2020-04-24 18:57] VITALS: BP 139/68
== END 2020-04-24 16:26 | disposition home or self-care (01) ==
LOC: MW.ED 15:31
DX: L03.114 Cellulitis of left upper limb (principal); I10 Essential (primary) hypertension; E78.00 Pure hypercholesterolemia, unspecified; F41.9 Anxiety disorder, unspecified; F32.9 Major depressive disorder, single episode, unspecified; Z90.49 Acquired absence of other specified parts of digestive tract; Z79.899 Other long term (current) drug therapy
CPT/HCPCS: 99282

== ENCOUNTER 2020-10-11 09:56 | Day surgery (SDC) | payer BC, MEDICARE ==
[~2020-10-11 09:56] MED LIST: Midazolam 1 MG/ML 2 ML SDV ONE; Propofol 200 MG/20 ML SDV ONE; Rocuronium Bromide 50 MG/5 ML Syringe ONE; Succinylcholine/Sod PF 100 MG/5 ML SYRINGE IV ONE; fentaNYL 100 MCG/2 ML SDV ONE
[2020-10-11] MEDS ORDERED: Albuterol/Ipratropium 3.0-0.5 MG/3 ML Neb Soln NEB ONE (10:30)
[2020-10-11] MEDS ORDERED: Fluorescein 5 ML Vial ONE (11:00)
--- NOTE | 2020-10-11 11:04 | PCM.PREANE ---
Preanesthetic Assessment - Anesthesia/Transfusion/Family Hx Anesthesia History: Prior Anesthesia Without Reaction Family History of Anesthesia Reaction: No Transfusion History: No Prior Transfusion(s) Intubation History: Unknown - Review of Systems General: No Symptoms Pulmonary: No Symptoms Cardiovascular: No Symptoms Gastrointestinal: No Symptoms Neurological: No Symptoms Other: Reports: None - Physical Assessment Vital Signs: Last Vital Signs Temp 36.5 C 10/11/20 10:14 Pulse 69 10/11/20 10:14 Resp 16 10/11/20 10:14 BP 136/63 10/11/20 10:14 Pulse Ox 93 L 10/11/20 10:14 Height: 5 ft 4 in Weight: 72.121 kg ASA Class: 2 Mental Status: Alert & Oriented x3 Airway Class: Mallampati = 2 Dentition: Reports: Partial (upper front (4 teeth)) Thyro-Mental Finger Breadths: 3 Mouth Opening Finger Breadths: 3 ROM/Head Extension: Limited/Partial Lungs: Normal Respiratory Effort, Crackles - Allergies Allergies/Adverse Reactions: Allergies Allergy/AdvReac Type Severity Reaction Status Date / Time No Known Allergies Allergy Verified 10/11/20 10:20 - Blood Blood Available: No - Anesthesia Plan Pre-Op Medication Ordered: None - Acknowledgements Anesthesia Type Planned: General Anesthesia Pt an Appropriate Candidate for the Planned Anesthesia: Yes Alternatives and Risks of Anesthesia Discussed w Pt/Guardian: Yes Pt/Guardian Understands and Agrees with Anesthesia Plan: Yes PreAnesthesia Questionnaire HEENT History: Reports: Allergic Rhinitis, Impaired Vision, Sinusitis, Other (See Below) Other HEENT History: wears glasses, top denture, Chronic sinus infections Cardiovascular History: Reports: High Cholesterol, Hypertension Other Cardiovascular History: HTN in the past Respiratory History: Reports: Other (See Below) Other Respiratory History: "I snore, but have not been diagnosed with sleep apnea", smokes 1 PPD x 40 years Gastrointestinal History: Reports: None Genitourinary History: Reports: None 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: , Prolapsed Uterus Musculoskeletal History: Reports: Fracture, Gout Other Musculoskeletal History: hx fx pelvis Neurological History: Reports: None Psychiatric History: Reports: Anxiety, Depression Endocrine/Metabolic History: Reports: None Hematologic History: Reports: Anemia Immunologic History: Reports: None Oncologic (Cancer) History: Reports: None Dermatologic History: Reports: Eczema - Infectious Disease History Infectious Disease History: Reports: Measles, Mumps - Past Surgical History Head Surgeries/Procedures: Reports: None HEENT Surgical History: Reports: Oral Surgery Cardiovascular Surgical History: Reports: None Respiratory Surgical History: Reports: None GI Surgical History: Reports: Appendectomy Female Surgical History: Reports: None, Other (See Below) (laparoscopy for ovarian cystectomy) Endocrine Surgical History: Reports: None Neurological Surgical History: Reports: C-Spine Other Neurological Surgeries/Procedures: cervical fusion Musculoskeletal Surgical History: Reports: Other (See Below) Other Musculoskeletal Surgeries/Procedures:: Cervical fusion (ACDF) Oncologic Surgical History: Reports: None Dermatological Surgical History: Reports: None - SUBSTANCE USE Tobacco Use Status *Q: Current Every Day Tobacco User (1 ppd) Tobacco Use Within Last Twelve Months: Cigarettes - HOME MEDS Home Medications: Home Meds Simvastatin [Zocor] 20 mg PO DAILY 12/20/14 [History] Citalopram [Celexa] 20 mg PO DAILY 06/05/16 [History] Pseudoephedrine HCl [Sudafed] 1 tab PO DAILY 02/28/20 [History] ALPRAZolam [Alprazolam] 0.5 mg PO BID PRN 10/06/20 [History] Herbal Supplements 1 dose PO DAILY 10/06/20 [History] Trimo-Elliott Cream 0.5 applic VAG ASDIRECTED 10/06/20 [History] dimenhyDRINATE [Motion Sickness Relief] 50 mg PO DAILY 10/06/20 [History] - CURRENT (IN HOUSE) MEDS Current Meds: Current Medications Discontinued Medications Albuterol/Ipratropium (Duoneb 3.0-0.5 Mg/3 Ml) 3 ml NEB ONETIME ONE Stop: 10/11/20 10:31 Last Admin: 10/11/20 10:36 Dose: 3 ml Documented by: Fentanyl (Sublimaze) Confirm Administered Dose 100 mcg .ROUTE .STK-MED ONE Stop: 10/11/20 08:37 Cefazolin Sodium/Dextrose (Ancef 2 Gm/50 Ml) Confirm Administered Dose 50 mls @ as directed .ROUTE .STK-MED ONE Stop: 10/11/20 10:44 Lidocaine HCl (Xylocaine-Mpf 1%) Confirm Administered Dose 5 ml .ROUTE .STK-MED ONE Stop: 10/11/20 08:38 Midazolam HCl (Versed 1 Mg/Ml) Confirm Administered Dose 2 mg .ROUTE .STK-MED ONE Stop: 10/11/20 08:37 Propofol (Diprivan 20 Ml) Confirm Administered Dose 200 mg .ROUTE .STK-MED ONE Stop: 10/11/20 08:37 Rocuronium [place] (Rocuronium Pal[place]ra) Confirm Administered Dose 50 mg .ROUTE .STK-MED ONE Stop: 10/11/20 08:38
[2020-10-11] MEDS ORDERED: Ipratropium 12.9 GM Inhaler ONE (11:19)
[2020-10-11] MEDS ORDERED: Albuterol 6.7 GM Inhaler INH ONE (11:19)
[2020-10-11] MEDS ORDERED: Naloxone 0.4 MG/ML Syringe IVPUSH PRN (11:55)
[2020-10-11] MEDS ORDERED: EPINEPHrine 1:10,000 1 MG/10 ML Syringe IVPUSH PRN (11:55)
[2020-10-11] MEDS ORDERED: fentaNYL 100 MCG/2 ML SDV IVPUSH PRN (11:55)
[2020-10-11] MEDS ORDERED: 50% Dextrose in Water 50 ML Syringe IVPUSH PRN (11:55)
[2020-10-11] MEDS ORDERED: Albuterol 0.083% 2.5 MG/3 ML Neb Soln NEB PRN (11:55)
[2020-10-11] MEDS ORDERED: Atropine 0.1 MG/ML 10 ML Syringe IVPUSH PRN ×2 (11:55)
[2020-10-11] MEDS ORDERED: HYDROmorphone 2 MG/ML Syringe IVPUSH PRN (11:58)
[2020-10-11] MEDS ORDERED: Ondansetron 4 MG/2 ML SDV IVPUSH PRN (11:58)
[2020-10-11] MEDS ORDERED: Furosemide 40 MG/4 ML VIAL ONE (12:04)
[2020-10-11] MEDS ORDERED: Glycopyrrolate 0.2 MG/ML SDV ONE (12:32)
[2020-10-11] MEDS ORDERED: Ondansetron 4 MG/2 ML SDV ONE (12:51)
[2020-10-11] MEDS ORDERED: Dexamethasone 4 MG/ML 5 ML MDV ONE (12:53)
--- NOTE | 2020-10-11 13:13 | PCM.OPNOTE ---
- General Post-Op/Procedure Note Date of Surgery/Procedure: 10/11/20 Operative Procedure(s): total vaginal hysterectomy, anterior colporrhaphy, vaginal vault suspension, left salpingoophorectomy, cystoscopy. Findings: 4th degree cystocele and uterine prolapse, normal tubes and ovaries, cystoscopy shows normal flow bilateral ureters and no trauma to bladder mucosa. Pre Op Diagnosis: incomplete uterovaginal prolapse. Post-Op Diagnosis: same Anesthesia Technique: General ET Tube Primary Surgeon: Aliyah Richards Secondary Surgeon: Paula Holland Anesthesia Provider: Laura Zheng Pathology: uterus, left tube and ovary, vaginal mucosa. Fluid Replacement, Intraop: 1,300 EBL in mLs: 50 Complications: None Known Condition: Good
[2020-10-11] MEDS ORDERED: Morphine 4 MG/ML Syringe IVPUSH PRN (13:17)
[2020-10-11] MEDS ORDERED: Promethazine 25 MG/ML SDV IM PRN (13:17)
[2020-10-11] MEDS ORDERED: Acetaminophen/oxyCODONE 325-5 MG Tab PO PRN ×2 (13:17)
[2020-10-11] MEDS ORDERED: Ketorolac 30 MG/ML SDV IVPUSH ONE (13:17)
[2020-10-11] MEDS ORDERED: ALPRAZolam 0.5 MG Tab PO PRN (13:24)
--- NOTE | 2020-10-11 14:46 | OR ---
SURGEON: Aliyah Richards M.D. DATE OF PROCEDURE: 10/11/2020 PREOPERATIVE DIAGNOSIS: Incomplete uterovaginal prolapse. POSTOPERATIVE DIAGNOSIS: Incomplete uterovaginal prolapse. PROCEDURES: Total vaginal hysterectomy, anterior colporrhaphy, vaginal vault suspension, left salpingo-oophorectomy, and cystoscopy. PRIMARY SURGEON: Aliyah Richards MD COPY CHASER: Paula Holland MD ANESTHESIA: General endotracheal. FLUIDS: 1000 mL of crystalloid. ESTIMATED BLOOD LOSS: 50 mL. URINE OUTPUT: 500 mL. COMPLICATIONS: None known. DISPOSITION: Stable to Recovery. PATHOLOGY SPECIMENS: Uterus, left tube and ovary, and vaginal mucosa. BRIEF HISTORY: This is a 70-year-old female. She has had a pessary for well over a year. She has a lot of pain and discomfort with the pessary. She has most recently experienced flooding with possible incomplete bladder emptying. She does not want to continue with the pessary as it does not appear to be helping with her urinary retention, which I believe is causing her overflow incontinence. Postvoid residual was performed at the time of cystometry and was over 100 mL. She has no urethral hypermobility or stress incontinence with reduction of the cystocele. She would like to proceed with total vaginal hysterectomy, anterior colporrhaphy, vaginal vault suspension, and cystoscopy with risks reviewed including risk of bleeding; blood clots; infection; and injury to bowel, bladder, blood vessels, ureters, or other organs as well as risk of anesthesia. She understands that 80% of people may have improved sexual function, but sexual dysfunction is also possible. Risk of recurrence is up to 30% to 40%. Also, there is a risk of new-onset stress incontinence and risk of dyspareunia. Understanding all these risks, she does desire to proceed. She was started on a nicotine patch preoperatively and did withhold her cigarette. She was seen by Dr. Gleason preoperatively for primary care clearance, and he did clear her for surgery with a concern about possible atelectasis and recommended incentive spirometry postoperatively, and she did receive an albuterol and Atrovent breathing treatment preoperatively. DESCRIPTION OF PROCEDURE: With the patient in dorsal lithotomy position, under adequate general endotracheal anesthesia, the abdomen was prepped with chlorhexidine. The perineum and vagina were prepped with Betadine and draped in usual fashion for vaginal surgery. SCDs were in place. Vega catheter had been placed. She had received 2 g of Ancef IV. After an appropriate time-out was held, the vagina was draped, and the patient was placed in steep Trendelenburg position. Weighted speculum was placed posteriorly. A right angle retractor was placed anteriorly. The cervix was grasped with a Suzy tenaculum and circumscribed using electrocautery. The posterior cul-de-sac was then entered sharply. A Pedrito-Auvard speculum was placed posteriorly. The anterior cul-de-sac was entered sharply, and a right angle retractor was placed in the anterior cul-de- sac. The uterosacral ligaments were clamped, cut, and ligated with a Rosalio ligature of 2-0 Polysorb. The uterine vessels were then clamped, cut, and ligated with a Rosalio ligature of 2-0 Polysorb, and the utero-ovarian ligaments were clamped, cut, and doubly ligated with a free tie followed by a Rosalio ligature of 2-0 Polysorb and retained for inspection. The uterus was then delivered vaginally. The pedicles were inspected. There was a small area of bleeding inferior to the left ovary, which was grasped with a Rosalio clamp and ligated. The tubes and ovaries did appear normal. The uterosacral ligaments were then grasped with Malinda clamps, and three 2-0 Ethibonds were placed in the left and right uterosacral ligament proceeding external to internal and with packing the bowel and palpating the ligament as each was placed. The posterior arm of each of these was placed through the posterior muscularis layer of the vagina from the cuff. During placement, there was some bleeding from the left utero-ovarian ligament. This was again clamped and ligated. I did proceed with anterior colporrhaphy, grasping the anterior cuff, and hydrodissection was performed. Metzenbaum scissors were used to undermine in the midline up to approximately 2 cm from the urethral meatus. The muscularis layer was and reapproximated in the midline using multiple interrupted sutures of 2-0 Polysorb. The bowel was again packed, and the area near the left ovary was again inspected. There was still a small amount of bleeding. The ovary was easily in view and appeared atrophic, and I felt it was best to proceed with removal of the ovary to ensure no further bleeding. Therefore, the infundibulopelvic ligament was then cross clamped and cut, doubly ligated using a free tie followed by a three-point suture of 2-0 Polysorb. With this, there was no further bleeding, and once the Ethibond sutures had been placed and a single tie was placed in each one, cystoscopy was performed giving IV fluorescein and Lasix prior to cystoscopy. Bilateral ureteral orifices were observed with tension on the placed sutures in the uterosacral ligament, and there was copious green flow of urine from both ureteral orifices. There was also no evidence of any trauma to the bladder mucosa. This being completed, the pedicles were again inspected and were hemostatic. Therefore, the anterior vaginal muscularis layer was attached to the 6 retained uterosacral ligaments. Each of these was then tied sequentially and cut. The vaginal mucosa was then closed with a running locked suture of 2-0 Polysorb incorporating the vaginal mucosa of the anterior wall and proceeding along to the area of the hysterectomy. Once the cuff was completely closed, the catheter had been replaced after cystoscopy was performed. The vagina was packed. Final sponge, needle, and instrument counts were reported as correct. There were no known complications. The patient was transferred to Recovery in good condition. Pathology specimens are uterus, left tube and ovary, and vaginal mucosa. FAHEEM / MOOK /[id number]
--- NOTE | 2020-10-11 15:04 | PCM.POSTAN ---
POST ANESTHESIA ASSESSMENT - MENTAL STATUS Mental Status: Alert, Oriented - VITAL SIGNS Vital Signs: Last Vital Signs Temp 36.5 C 10/11/20 10:14 Pulse 65 10/11/20 14:09 Resp 14 10/11/20 14:09 BP 140/61 10/11/20 14:09 Pulse Ox 96 10/11/20 14:09 - RESPIRATORY Respiratory Status: Respiratory Rate WNL, Airway Patent, O2 Saturation Stable - CARDIOVASCULAR CV Status: Pulse Rate WNL, Blood Pressure Stable - GASTROINTESTINAL GI Status: No Symptoms - PAIN Pain Score: 5 - POST OP HYDRATION Hydration Status: Adequate & Stable - OBSERVATIONS Free Text/Narrative:: No anesthesia problems
[2020-10-11] MEDS: Albuterol/Ipratropium 3.0-0.5 MG/3 ML Neb Soln NEB SCH ×2 (15:32→21:03)
[2020-10-11] MEDS: Sodium Chloride 0.9% 1,000 ML IV SCH (17:35)
[2020-10-11] MEDS ORDERED: Ketorolac 15 MG/ML SDV IVPUSH PRN (19:30)
[2020-10-11] MEDS: Ondansetron 4 MG/2 ML SDV IVPUSH PRN (20:55)
[2020-10-12] MEDS: Sodium Chloride 0.9% 1,000 ML IV SCH (03:32)
[2020-10-12] MEDS: Albuterol/Ipratropium 3.0-0.5 MG/3 ML Neb Soln NEB SCH (06:03)
[2020-10-12 06:18] LABS: BLOOD UREA NITROGEN,BUN 8 mg/dL (7.0-18.0); CHLORIDE,CL 108 mmol/L (98-107); GLUCOSE RANDOM 115 mg/dL (74-106); POTASSIUM,K 3.7 mmol/L (3.5-5.1); SODIUM,NA 145 mmol/L (136-145)
[2020-10-12 07:22] VITALS: BP 140/67; PULSE 84
[2020-10-12] MEDS: Ondansetron 4 MG/2 ML SDV IVPUSH PRN (08:00)
--- NOTE | 2020-10-12 08:01 | PCM48HPAN ---
Post Anesthesia Note - EVALUATION WITHIN 48HRS OF ANESTHETIC Vital Signs in Normal Range: Yes Patient Participated in Evaluation: Yes Respiratory Function Stable: Yes Airway Patent: Yes Cardiovascular Function Stable: Yes Hydration Status Stable: Yes Pain Control Satisfactory: Yes (Reports 2/10 pain, satisfactory control) Nausea and Vomiting Control Satisfactory: Yes (Mild nausea, no vomiting. Eating oatmeal. Encouraged to advance diet slowly) Vital Signs: Last Vital Signs Temp 37.2 C 10/12/20 07:21 Pulse 84 10/12/20 07:21 Resp 12 10/12/20 07:21 BP 140/67 10/12/20 07:21 Pulse Ox 92 L 10/12/20 07:21 - COMMENTS/OBSERVATIONS Free Text/Narrative:: Pt sitting in the chair, denies trouble ambulating.
--- NOTE | 2020-10-12 08:36 | PCM.SURGPN ---
- General Info Date of Service: 10/12/20 Date of Surgery/Procedure: 10/11/20 POD#: 1 Post-Op Diagnosis: Incomplete uterovaginal prolapse. Functional Status: Reports: Pain Controlled, Tolerating Diet (mild nausea after breakfast), Ambulating, Urinating - Review of Systems General: Reports: No Symptoms HEENT: Reports: Headaches, Sinus Congestion (feels like she is getting a sinus infection, would like antibiotics for that.) Pulmonary: Reports: No Symptoms Cardiovascular: Reports: No Symptoms Gastrointestinal: Reports: No Symptoms Genitourinary: Reports: No Symptoms Musculoskeletal: Reports: No Symptoms Skin: Reports: No Symptoms Neurological: Reports: No Symptoms Psychiatric: Reports: No Symptoms - Patient Data Vitals - Most Recent: Last Vital Signs Temp 37.2 C 10/12/20 07:21 Pulse 84 10/12/20 07:21 Resp 12 10/12/20 07:21 BP 140/67 10/12/20 07:21 Pulse Ox 92 L 10/12/20 07:21 Weight - Most Recent: 71.849 kg I&O - Last 24 Hours: Intake & Output 10/11/20 10/12/20 10/12/20 22:59 06:59 14:59 Intake Total 1440 Output Total 1850 Balance -410 Lab Results Last 24 Hrs: Laboratory Results - last 24 hr 10/11/20 10/12/20 10/12/20 Range/Units 10:30 05:36 05:36 WBC 13.46 H (4.0-11.0) K/uL RBC 4.24 L (4.30-5.90) M/uL Hgb 14.0 (12.0-16.0) g/dL Hct 41.1 (36.0-46.0) % MCV 96.9 (80.0-98.0) fL MCH 33.0 H (27.0-32.0) pg MCHC 34.1 (31.0-37.0) g/dL RDW Std Deviation 48.9 (28.0-62.0) fl RDW Coeff of Aide 14 (11.0-15.0) % Plt Count 232 (150-400) K/uL MPV 11.40 (7.40-12.00) fL Neut % (Auto) 80.6 H (48.0-80.0) % Lymph % (Auto) 10.9 L (16.0-40.0) % Gentry % (Auto) 8.5 (0.0-15.0) % Eos % (Auto) 0.0 (0.0-7.0) % Baso % (Auto) 0.0 (0.0-1.5) % Neut # (Auto) 10.9 H (1.4-5.7) K/uL Lymph # (Auto) 1.5 (0.6-2.4) K/uL Gentry # (Auto) 1.1 H (0.0-0.8) K/uL Eos # (Auto) 0.0 (0.0-0.7) K/uL Baso # (Auto) 0.0 (0.0-0.1) K/uL Nucleated RBC % 0.0 /100WBC Nucleated RBCs # 0 K/uL Sodium 145 (136-145) mmol/L Potassium 3.7 (3.5-5.1) mmol/L Chloride 108 H (98-107) mmol/L Carbon Dioxide 26.0 (21.0-32.0) mmol/L BUN 8 (7.0-18.0) mg/dL Creatinine 0.6 (0.6-1.0) mg/dL Est Cr Clr Drug Dosing 77.49 mL/min Estimated GFR (MDRD) > 60.0 ml/min Glucose 115 H (74-106) mg/dL Calcium 8.9 (8.5-10.1) mg/dL Blood Type A POSITIVE Antibody Screen NEGATIVE Med Orders - Current: Current Medications Albuterol/Ipratropium (Duoneb 3.0-0.5 Mg/3 Ml) 3 ml NEB Q8HRRT [facility] Last Admin: 10/12/20 06:03 Dose: 3 ml Documented by: Alprazolam (Xanax) 0.5 mg PO BID PRN PRN Reason: Anxiety Citalopram Hydrobromide (Celexa) 40 mg PO DAILY [facility] Sodium Chloride (Normal Saline) 1,000 mls @ 100 mls/hr IV Q10H [facility] Last Admin: 10/12/20 03:32 Dose: 100 mls/hr Documented by: Ketorolac Tromethamine (Toradol) 15 mg IVPUSH Q6H PRN PRN Reason: Pain (severe 7-10) Morphine Sulfate (Morphine) 4 mg IVPUSH Q2H PRN PRN Reason: Pain (severe 7-10) Nicotine (Habitrol) 14 mg TRDERM DAILY [facility] Ondansetron HCl (Zofran) 4 mg IVPUSH Q6H PRN PRN Reason: Nausea/Vomiting Last Admin: 10/12/20 08:00 Dose: 4 mg Documented by: Oxycodone/Acetaminophen (Percocet 325-5 Mg) 1 tab PO Q4H PRN PRN Reason: Pain (moderate 4-6) Last Admin: 10/11/20 20:58 Dose: 1 tab Documented by: Oxycodone/Acetaminophen (Percocet 325-5 Mg) 2 tab PO Q4H PRN PRN Reason: Pain (moderate 4-6) Promethazine HCl (Phenergan) 25 mg IM Q6H PRN PRN Reason: Nausea/Vomiting Last Admin: 10/11/20 13:54 Dose: 25 mg Documented by: Discontinued Medications Albuterol (Proventil Hfa) Confirm Administered Dose 6.7 gm INH .STK-MED ONE Stop: 10/11/20 11:20 Albuterol (Proventil Neb Soln) 2.5 mg NEB ONETIME PRN PRN Reason: Wheezing Albuterol/Ipratropium (Duoneb 3.0-0.5 Mg/3 Ml) 3 ml NEB ONETIME ONE Stop: 10/11/20 10:31 Last Admin: 10/11/20 10:36 Dose: 3 ml Documented by: Atropine Sulfate (Atropine 0.1 Mg/Ml) 0.5 mg IVPUSH ASDIRECTED PRN PRN Reason: Hypo-perfusion Atropine Sulfate (Atropine 0.1 Mg/Ml) 1 mg IVPUSH ASDIRECTED PRN PRN Reason: Hypo-Perfusion Dexamethasone (Dexamethasone) Confirm Administered Dose 20 mg .ROUTE .STK-MED ONE Stop: 10/11/20 12:54 Dextrose/Water (Dextrose 50% In Water) 50 ml IVPUSH ASDIRECTED PRN PRN Reason: Hypoglycemia Epinephrine HCl (Epinephrine 1:10,000) 1 mg IVPUSH ASDIRECTED PRN PRN Reason: ACLS Guidelines Fentanyl (Sublimaze) Confirm Administered Dose 100 mcg .ROUTE .STK-MED ONE Stop: 10/11/20 08:37 Fentanyl (Sublimaze) 25 mcg IVPUSH Q5M PRN PRN Reason: Pain Fluorescein Sodium (Ak-Fluor) Confirm Administered Dose 5 ml .ROUTE .STK-MED ONE Stop: 10/11/20 11:01 Furosemide (Lasix) Confirm Administered Dose 40 mg .ROUTE .STK-MED ONE Stop: 10/11/20 12:05 Glycopyrrolate (Robinul) Confirm Administered Dose 0.4 mg .ROUTE .STK-MED ONE Stop: 10/11/20 12:33 Hydromorphone HCl (Dilaudid) 0.25 mg IVPUSH .Q5MIN PRN PRN Reason: Pain (severe 7-10) Stop: 10/12/20 11:59 Cefazolin Sodium/Dextrose (Ancef 2 Gm/50 Ml) Confirm Administered Dose 50 mls @ as directed .ROUTE .STK-MED ONE Stop: 10/11/20 10:44 Acetaminophen (Ofirmev 1000 Mg/100 Ml) Confirm Administered Dose 100 mls @ as directed .ROUTE .STK-MED ONE Stop: 10/11/20 11:01 Ipratropium Baxley (Atrovent Hfa) Confirm Administered Dose 12.9 gm .ROUTE .STK-MED ONE Stop: 10/11/20 11:20 Ketorolac Tromethamine (Toradol) 15 mg IVPUSH ONETIME ONE Stop: 10/11/20 13:18 Last Admin: 10/11/20 13:30 Dose: 30 mg Documented by: Lidocaine HCl (Xylocaine-Mpf 1%) Confirm Administered Dose 5 ml .ROUTE .STK-MED ONE Stop: 10/11/20 08:38 Midazolam HCl (Versed 1 Mg/Ml) Confirm Administered Dose 2 mg .ROUTE .STK-MED ONE Stop: 10/11/20 08:37 Naloxone HCl (Narcan) 0.1 mg IVPUSH ASDIRECTED PRN PRN Reason: Respiratory Depression Ondansetron HCl (Zofran) 4 mg IVPUSH ONETIME PRN PRN Reason: Nausea/Vomiting Last Admin: 10/11/20 13:40 Dose: 4 mg Documented by: Ondansetron HCl (Zofran) Confirm Administered Dose 4 mg .ROUTE .STK-MED ONE Stop: 10/11/20 12:52 Propofol (Diprivan 20 Ml) Confirm Administered Dose 200 mg .ROUTE .STK-MED ONE Stop: 10/11/20 08:37 Rocuronium Baxley (Rocuronium Baxley) Confirm Administered Dose 50 mg .ROUTE .STK-MED ONE Stop: 10/11/20 08:38 - Exam General: Alert, Oriented Neck: Supple Lungs: Normal Respiratory Effort GI/Abdominal Exam: Soft, Non-Tender Extremities: No Pedal Edema Sepsis Event Note - Evaluation Sepsis Screening Result: No Definite Risk - Focused Exam Vital Signs: Vital Signs Temp Pulse Resp BP Pulse Ox 10/12/20 07:21 37.2 C 84 12 140/67 92 L 10/12/20 04:09 36.8 C 103 H 16 136/64 90 L 10/11/20 23:45 36.6 C 104 H 17 122/59 L 92 L - Problem List & Annotations (1) Complete uterovaginal prolapse SNOMED Code(s): 64699717 Code(s): N81.3 - COMPLETE UTEROVAGINAL PROLAPSE Status: Acute Current Visit: Yes (2) Maxillary sinusitis, acute SNOMED Code(s): 20215070 Code(s): J01.00 - ACUTE MAXILLARY SINUSITIS, UNSPECIFIED Status: Acute Current Visit: No Qualifiers: Recurrence: recurrent Qualified Code(s): J01.01 - Acute recurrent maxillary sinusitis - Problem List Review Problem List Initiated/Reviewed/Updated: Yes - My Orders Last 24 Hours: Active Orders 24 hr Category Date Time Status Patient Status [ADT] Routine ADT 10/11/20 13:17 Active Antiembolic Devices [RC] PER UNIT ROUTINE Care 10/11/20 13:17 Active Notify Provider Intake and Out [RC] ASDIRECTED Care 10/11/20 13:17 Active Notify Provider Vital Signs [RC] ASDIRECTED Care 10/11/20 13:17 Active Oxygen Therapy [RC] ASDIRECTED Care 10/11/20 13:17 Active RT Aerosol Therapy [RC] ASDIRECTED Care 10/11/20 13:21 Active RT Incentive Spirometry [RC] Q2HWA Care 10/11/20 13:17 Active Ready for Discharge [RC] PER UNIT ROUTINE Care 10/12/20 08:32 Ordered Up With Assistance [RC] PER UNIT ROUTINE Care 10/11/20 13:17 Active Up ad Terri [RC] PER UNIT ROUTINE Care 10/11/20 13:17 Active Vital Signs [RC] PER UNIT ROUTINE Care 10/11/20 13:17 Active Regular Diet [DIET] Diet 10/11/20 Dinner Active ALPRAZolam [Xanax] Med 10/11/20 13:24 Active 0.5 mg PO BID PRN Acetaminophen/oxyCODONE [Percocet 325-5 MG] Med 10/11/20 13:17 Active 1 tab PO Q4H PRN Acetaminophen/oxyCODONE [Percocet 325-5 MG] Med 10/11/20 13:17 Active 2 tab PO Q4H PRN Albuterol/Ipratropium [DuoNeb 3.0-0.5 MG/3 ML] Med 10/11/20 14:00 Active 3 ml NEB Q8HRRT Citalopram [Celexa] Med 10/12/20 09:00 Active 40 mg PO DAILY Ketorolac [Toradol] Med 10/11/20 19:30 Active 15 mg IVPUSH Q6H PRN Morphine Med 10/11/20 13:17 Active 4 mg IVPUSH Q2H PRN Nicotine [Habitrol] Med 10/12/20 09:00 Active 14 mg TRDERM DAILY Ondansetron [Zofran] Med 10/11/20 13:17 Active 4 mg IVPUSH Q6H PRN Promethazine [Phenergan] Med 10/11/20 13:17 Active 25 mg IM Q6H PRN Sodium Chloride 0.9% [Normal Saline] 1,000 ml Med 10/11/20 17:30 Active IV Q10H Peripheral IV Discontinue [OM.PC] Routine Oth 10/11/20 13:17 Ordered Remove Vaginal Packing [OM.PC] Per Unit Routine Oth 10/12/20 05:00 Ordered Sequential Compression Device [OM.PC] Per Unit Routine Oth 10/11/20 13:17 Ordered Resuscitation Status Routine Resus Stat 10/11/20 13:17 Ordered Medication Orders Albuterol/Ipratropium (Duoneb 3.0-0.5 Mg/3 Ml) 3 ml NEB Q8HRRT [facility] Last Admin: 10/12/20 06:03 Dose: 3 ml Documented by: Admin: 10/11/20 21:03 Dose: 3 ml Documented by: Admin: 10/11/20 15:32 Dose: 3 ml Documented by: TARIQ Alprazolam (Xanax) 0.5 mg PO BID PRN PRN Reason: Anxiety Citalopram Hydrobromide (Celexa) 40 mg PO DAILY [facility] Sodium Chloride (Normal Saline) 1,000 mls @ 100 mls/hr IV Q10H [facility] Last Admin: 10/12/20 03:32 Dose: 100 mls/hr Documented by: Infusion: 10/12/20 03:32 Dose: 100 mls/hr Documented by: Admin: 10/11/20 17:35 Dose: 100 mls/hr Documented by: LORAINE Ketorolac Tromethamine (Toradol) 15 mg IVPUSH Q6H PRN PRN Reason: Pain (severe 7-10) Morphine Sulfate (Morphine) 4 mg IVPUSH Q2H PRN PRN Reason: Pain (severe 7-10) Nicotine (Habitrol) 14 mg TRDERM DAILY [facility] Ondansetron HCl (Zofran) 4 mg IVPUSH Q6H PRN PRN Reason: Nausea/Vomiting Last Admin: 10/12/20 08:00 Dose: 4 mg Documented by: Admin: 10/11/20 20:55 Dose: 4 mg Documented by: KRISTI Oxycodone/Acetaminophen (Percocet 325-5 Mg) 1 tab PO Q4H PRN PRN Reason: Pain (moderate 4-6) Last Admin: 10/11/20 20:58 Dose: 1 tab Documented by: KRISTI Oxycodone/Acetaminophen (Percocet 325-5 Mg) 2 tab PO Q4H PRN PRN Reason: Pain (moderate 4-6) Promethazine HCl (Phenergan) 25 mg IM Q6H PRN PRN Reason: Nausea/Vomiting Last Admin: 10/11/20 13:54 Dose: 25 mg Documented by: [id number] - Assessment Assessment (Free Text/Narrative):: POD#1 after TVH anterior colporrhaphy vaginal vault suspension. Pain is well controlled, tolerating diet, although a little nauseated after breakfast, minimal vaginal bleeding. Feels that she is getting a sinus infection with typical headache and congestion that she gets. - Plan Plan (Free Text/Narrative):: Dismiss to home. Discharge instructions given. Rx for Augmentin sent for sinus symptoms.
[2020-10-12] MEDS ORDERED: PSEUDOEPHEDRINE HCL PO SCH (09:00)
[2020-10-12] MEDS ORDERED: Citalopram 20 MG Tab PO SCH (09:00)
[2020-10-12] MEDS ORDERED: Nicotine 14 MG/24 Hr Patch TRDERM SCH (09:00)
== END 2020-10-12 09:50 | disposition home or self-care (01) ==
LOC: MW.SDS 09:56 → MW.MS 14:43 → MW.SDS 10-12 09:50
PROVIDERS: ATTEND Obstetrics & Gynecology
DX: N81.4 Uterovaginal prolapse, unspecified (principal); N83.332 Acquired atrophy of left ovary and fallopian tube; N88.8 Other specified noninflammatory disorders of cervix uteri; R32 Unspecified urinary incontinence; I10 Essential (primary) hypertension; F17.210 Nicotine dependence, cigarettes, uncomplicated; E78.00 Pure hypercholesterolemia, unspecified; M10.9 Gout, unspecified; Z90.49 Acquired absence of other specified parts of digestive tract; Z98.890 Other specified postprocedural states; Z79.899 Other long term (current) drug therapy
CPT/HCPCS: 36415; 57240; 57283; 58262; 80048; 85025; 86850; 86900; 86901; 88307; 94640; A9270; J0131; J0330; J0690; J1100; J1885; J1940; J2250; J2405; J2550; J2704; J3490; J7030; 00944; J3010; J7620-GY